=== PATIENT | female | born 1935 | race Hispanic/Latino ===

== ENCOUNTER 2018-05-14 11:30 | Emergency (ER) | payer MEDICARE, OTHER ==
[2018-05-14 11:52] VITALS: RESP 18; TEMP 98.1
--- NOTE | 2018-05-14 12:14 | ED PDOC ---
Arrival/HPI - General Historian: Patient - History of Present Illness Narrative History of Present Illness (Text): 05/14/18 12:37 83 y/o F with PMHx of diverticulosis, hemorrhoids, CHF, aortic dissection, ANCA vasculitis, peripheral neuropathy, splenectomy (1979) presents to ED with complaints of sharp 8/10 LUQ pain with radiation to back thats been ongoing for about 5 days with associated constipation that worsened with movement. She took mg citrate for constipation with alleviation. She denies associated n/v/d hematemesis, hematochezia. She had visited her GI doctor's office yesterday, who recommended her to visit for CT abdomen. She denies f/c/headache/dizzines/cp/palpiations/sob/dysuria. PMD: Dr. Mccabe Time/Duration: Prior to Arrival Symptom Onset: Gradual Symptom Course: Unchanged Severity Level: 8 <Anaya Cotter - Last Filed: 05/14/18 18:37> <Yg Clark - Last Filed: 05/14/18 19:50> - General Chief Complaint: GI Problem Time Seen by Provider: 05/14/18 11:54 Past Medical History - Provider Review Nursing Documentation Reviewed: Yes - Cardiac Hx Hypertension: Yes Other/Comment: open heart sx - Gastrointestinal Hx Constipation: Yes - Psychiatric Hx Substance Use: No - Surgical History Other/Comment: vasculitis. open heart - Anesthesia Hx Anesthesia: Yes Hx Anesthesia Reactions: No Hx Malignant Hyperthermia: No <Anaya Cotter - Last Filed: 05/14/18 18:37> Family/Social History - Physician Review Nursing Documentation Reviewed: Yes Family/Social History: Unknown Family HX Smoking Status: Never Smoked Hx Alcohol Use: No Hx Substance Use: No <Anaya Cotter - Last Filed: 05/14/18 18:37> Allergies/Home Meds <Anaya Cotter - Last Filed: 05/14/18 18:37> <Yg Clark - Last Filed: 05/14/18 19:50> Allergies/Adverse Reactions: Allergies No Known Allergies Allergy (Verified 05/14/18 11:46) Home Medications: Home Meds Medication Instructions Recorded Confirmed RX: Aspirin [Aspirin Chewable] 81 mg PO DAILY 05/14/18 05/14/18 RX: Carvedilol [Coreg] 6.25 mg PO BID 05/14/18 05/14/18 RX: Folic Acid [FA-8] 1 mg PO DAILY 05/14/18 05/14/18 RX: Furosemide [Lasix] 20 mg pe PO DAILY 05/14/18 05/14/18 RX: Gabapentin [Neurontin] 300 mg PO TID 05/14/18 05/14/18 RX: Pantoprazole [Protonix EC Tab] 40 mg pe PO DAILY 05/14/18 05/14/18 RX: Prednisolone [Millipred] 7 mg PO DAILY 05/14/18 05/14/18 Review of Systems - Review of Systems Constitutional: Normal Eyes: Normal ENT: Normal Respiratory: Normal Cardiovascular: Normal Gastrointestinal: Abdominal Pain, Constipation. absent: Diarrhea, Nausea, Vomiting, Hematochezia, Hematemesis Genitourinary Female: Normal Musculoskeletal: Normal Skin: Normal Neurological: Normal Endocrine: Normal Hemo/Lymphatic: Normal Psychiatric: Normal <Anaya Cotter - Last Filed: 05/14/18 18:37> Physical Exam Vital Signs Reviewed: Yes Vital Signs Temp Pulse Resp BP Pulse Ox 05/14/18 11:30 98.1 F 80 18 101/77 93 L Temperature: Afebrile Blood Pressure: Normal Pulse: Regular Respiratory Rate: Normal Appearance: Positive for: Well-Appearing, Non-Toxic, Comfortable Pain Distress: None Mental Status: Positive for: Alert and Oriented X 3 - Systems Exam Head: Present: Atraumatic, Normocephalic Pupils: Present: PERRL Extroacular Muscles: Present: EOMI Conjunctiva: Present: Normal Mouth: Present: Moist Mucous Membranes Neck: Present: Normal Range of Motion Respiratory/Chest: Present: Clear to Auscultation, Good Air Exchange. No: Respiratory Distress, Accessory Muscle Use Cardiovascular: Present: Regular Rate and Rhythm, Normal S1, S2. No: Murmurs Abdomen: Present: Normal Bowel Sounds. No: Tenderness, Distention, Peritoneal Signs, Rebound, Guarding, McBurney's Point Tender, Rovsing's Sign Present Back: Present: Normal Inspection, CVA Tenderness (L sided (mild)) Upper Extremity: Present: Normal Inspection. No: Cyanosis, Edema Lower Extremity: Present: Normal Inspection. No: Edema Neurological: Present: GCS=15, CN II-XII Intact, Speech Normal Skin: Present: Warm, Dry, Normal Color. No: Rashes Psychiatric: Present: Alert, Oriented x 3, Normal Insight, Normal Concentration <Anaya Cotter Last Filed: 05/14/18 18:37> Vital Signs Temp Pulse Resp BP Pulse Ox 05/14/18 15:53 68 18 116/87 98 05/14/18 15:30 69 18 116/87 98 05/14/18 13:42 69 114/69 95 05/14/18 11:30 98.1 F 80 18 101/77 93 L <Yg Clark - Last Filed: 05/14/18 19:50> Medical Decision Making ED Course and Treatment: 05/14/18 12:48 Impression: 83 y/o F with PMHx of diverticulosis, hemorrhoids, CHF, aortic dissection, ANCA vasculitis, peripheral neuropathy, splenectomy (1979) Prior notes and results reviewed Differential diagnosis includes but not limited to: Abdominal pain Plan: Labs EKG CT abdomen Reassess & dispo - RAD Interpretation Narrative RAD Interpretations (Text): 05/14/18 15:33 CT abdomen/pelvis: No acute findings - EKG Interpretation EKG Interpretation (Text): 05/14/18 15:33 Sinus rhythm with marked sinus arrythmia Otherwise normal EKG HR: 78 bpm QTc: 414 ms <Anaya Cotter - Last Filed: 05/14/18 18:37> ED Course and Treatment: Seen and examined with resident. 83 y/o F p/w L sided abdominal pain. On exam, no tenderness. - Lab Interpretations Lab Results: PT 11.2 SECONDS (9.4-12.5) 05/14/18 13:38 INR 0.97 05/14/18 13:38 APTT 20.4 Seconds (25.1-36.5) L 05/14/18 13:38 Total Bilirubin 1.3 mg/dL (0.2-1.3) 05/14/18 13:38 AST 24 U/L (14-36) 05/14/18 13:38 ALT 35 U/L (7-56) 05/14/18 13:38 Alkaline Phosphatase 69 U/L (38-126) 05/14/18 13:38 Total Protein 6.4 g/dL (5.8-8.3) 05/14/18 13:38 Albumin 3.9 g/dL (3.0-4.8) 05/14/18 13:38 Globulin 2.6 gm/dL 05/14/18 13:38 Albumin/Globulin Ratio 1.5 (1.1-1.8) 05/14/18 13:38 Lipase 147 U/L (23-300) 05/14/18 13:38 Urine Color Yellow (YELLOW) 05/14/18 13:50 Urine Appearance Sl cloudy (CLEAR) 05/14/18 13:50 Urine pH 6.0 (4.7-8.0) 05/14/18 13:50 Ur Specific [place] 1.025 (1.005-1.035) 05/14/18 13:50 Urine Protein Negative mg/dL (<30 mg/dL) 05/14/18 13:50 Urine Glucose (UA) Negative mg/dL (NEGATIVE) 05/14/18 13:50 Urine Ketones Negative mg/dL (NEGATIVE) 05/14/18 13:50 Urine Blood Trace-intact (NEGATIVE) H 05/14/18 13:50 Urine Nitrate Negative (NEGATIVE) 05/14/18 13:50 Urine Bilirubin Negative (NEGATIVE) 05/14/18 13:50 Urine Urobilinogen 0.2 E.U./dL (<1 E.U./dL) 05/14/18 13:50 Ur Leukocyte Esterase Negative Zara/uL (NEGATIVE) 05/14/18 13:50 Urine RBC 0 - 2 /hpf (0-2) 05/14/18 13:50 Urine WBC None /hpf (0-6) 05/14/18 13:50 - RAD Interpretation Radiology Orders: 05/14/18 13:06 ABD & PELVIS IV CONTRAST ONLY [CT] Stat <Yg Clark - Last Filed: 05/14/18 19:50> - PA / CEMENT DESPATCH OPERATOR / Resident Statement / has reviewed & agrees with the documentation as recorded. / has examined the patient and agrees with the treatment plan. <Anaya Cotter - Last Filed: 05/14/18 18:37> Disposition/Present on Arrival - Present on Arrival Any Indicators Present on Arrival: No History of DVT/PE: No History of Uncontrolled Diabetes: No Urinary Catheter: No History of Decub. Ulcer: No History Surgical Site Infection Following: None - Disposition Have Diagnosis and Disposition been Completed?: Yes Disposition Time: 15:32 <Anaya Cotter - Last Filed: 05/14/18 18:37> <Yg Clark - Last Filed: 05/14/18 19:50> - Disposition Diagnosis: Abdominal pain Disposition: HOME/ ROUTINE Condition: GOOD Referrals: Rachel Rashid MD [Medical Doctor] - Follow up with primary Forms: [employer] (Serbian)
[2018-05-14] MEDS ORDERED: Iohexol 350 MG/100 ML VIAL ONE (13:34)
[2018-05-14 13:56] LABS: BASO # 0.04 K/mm3 (0.0-2.0); BASO % 0.3 % (0.0-3.0); EOS % 0.3 % (1.5-5.0); GRAN # 9.74 (1.4-6.5); GRAN % 84.1 % (50.0-68.0); HEMOGLOBIN 12.6 g/dL (12.0-16.0); LYMPH # 1.3 (1.2-3.4); LYMPH % 11.6 % (22.0-35.0); MEAN CELL VOLUME 99.5 fl (80.0-105.0); MEAN CORPUSCULAR HEMOGLOBIN 31.6 pg (25.0-35.0); MEAN CORPUSCULAR HGB CONC 31.7 g/dl (31.0-37.0); MEAN PLATELET VOLUME 9.7 fl (7.0-11.0); MONO # 0.4 (0.1-0.6); MONO % 3.7 % (1.0-6.0); RBC 3.99 10^6/uL (3.5-6.1); WHITE BLOOD COUNT 11.6 10^3/uL (4.5-11.0)
[2018-05-14 14:05] LABS: URINE BILIRUBIN NEGATIVE (NEGATIVE); URINE BLOOD TRACE-INTACT (NEGATIVE); URINE GLUCOSE (UA) NEGATIVE (NEGATIVE); URINE LEUKOCYTE ESTERASE NEGATIVE Leu/uL (NEGATIVE); URINE PROTEIN NEGATIVE mg/dL (<30 mg/dL); URINE UROBILINOGEN 0.2 E.U./dL (<1 E.U./dL)
[2018-05-14 14:11] LABS: INR 0.97; PARTIAL THROMBOPLASTIN TIME 20.4 Seconds (25.1-36.5); PROTHROMBIN TIME 11.2 SECONDS (9.4-12.5)
[2018-05-14 14:11] LABS: URINE APPEARANCE SL CLOUDY (CLEAR); URINE COLOR YELLOW (YELLOW)
[2018-05-14 14:12] LABS: ALB/GLOB RATIO 1.5 (1.1-1.8); ALBUMIN 3.9 g/dL (3.0-4.8); ALT/SGPT 35 U/L (7-56); AST/SGOT 24 U/L (14-36); BLOOD UREA NITROGEN 27 mg/dL (7-21); CALCIUM 9.7 mg/dL (8.4-10.5); GFR NON-AFRICAN AMERICAN 53; LIPASE 147 U/L (23-300)
[2018-05-14 14:21] LABS: URINE RBC 0 - 2 /hpf (0-2)
--- NOTE | 2018-05-14 15:11 | CT ---
Date of service: 05/14/2018 PROCEDURE: CT Abdomen and Pelvis with contrast HISTORY: LUQ pain COMPARISON: None. TECHNIQUE: Intravenous contrast dose: 100 cc Omnipaque 350 Radiation dose: Total exam DLP = 374.25 mGy-cm. This CT exam was performed using one or more of the following dose reduction techniques: Automated exposure control, adjustment of the mA and/or kV according to patient size, and/or use of iterative reconstruction technique. FINDINGS: LOWER THORAX: Unremarkable. LIVER: Hepatic steatosis. No focal masses. No intrahepatic bile duct dilatation or perihepatic ascites. GALLBLADDER AND BILE DUCTS: Unremarkable. PANCREAS: Unremarkable. No gross lesion or ductal dilatation. SPLEEN: Surgically removed. ADRENALS: Unremarkable. No mass. KIDNEYS AND URETERS: Unremarkable. No hydronephrosis. No solid mass. Incidental finding(s): Subcentimeter angiomyolipoma lower pole right kidney. VASCULATURE: Unremarkable. No aortic aneurysm. No atherosclerotic calcification or mural plaque present. BOWEL: Unremarkable. No obstruction. No gross mural thickening. APPENDIX: Prior appendectomy. PERITONEUM: Unremarkable. No free fluid. No free air. LYMPH NODES: Unremarkable. No enlarged lymph nodes. BLADDER: Unremarkable. REPRODUCTIVE: Unremarkable. BONES: No acute fracture. Multilevel degenerative changes visualized thoracolumbar spine. OTHER FINDINGS: None. IMPRESSION: No significant or acute findings to account for/ related to the clinical presentation. Additional benign and/or incidental findings described above.
[2018-05-14 15:46] VITALS: BP 116/87; O2SAT 98
[2018-05-14 15:55] VITALS: PULSE 68
--- NOTE | 2018-05-14 18:41 | CARD ---
APPROVED REPORT Date of service: 05/14/2018 EKG Measurement Heart [id number] [id number] <Conclusion> Sinus rhythm with marked sinus arrhythmia Otherwise normal ECG
== END 2018-05-14 15:42 | disposition home or self-care (01) ==
LOC: ED 11:30
DX: R10.9 Unspecified abdominal pain (principal); I11.0 Hypertensive heart disease with heart failure; I50.9 Heart failure, unspecified; Z95.1 Presence of aortocoronary bypass graft
CPT/HCPCS: 74177; 80053; 81001; 83690; 85025; 85610; 85730; 93005; 99284; Q9967